=== PATIENT | male | born 1960 ===

== ENCOUNTER → 2021-02-25 | Outpatient (REF) ==
--- NOTE | 2021-03-04 16:18 | SLEEPHOME ---
DIAGNOSTIC HOME SLEEP STUDY DATE: 02/25/2021 PEFORMING FACILITY: [facility] ORDERED BY: Dennis Diehl D.O. Diagnostic home sleep testing was performed due to concern for the obstructive sleep apnea syndrome. For testing, a nocturnal T3 respiratory monitoring device was used. Continuous record was made of pulse, oxygen saturation, air flow, chest and abdominal strain, and body position. 9 hours and 59 minutes of data were reviewed. There were 7 hours and 44 minutes marked as time in bed. During the interval marked time in bed, there were 1077 respiratory events identified of 10 seconds in duration or greater for a respiratory event index 139. The events were primarily obstructive; however, 379 mixed and central apneas were appreciated. Baseline pulse rate 57. Pulse rate range 47 to 78. Baseline saturation was 92%. Saturations fell as low as 74%. Testing was performed in both the supine and non-supine positions. IMPRESSION: Abnormal home sleep testing, with repetitive respiratory events and oxygen desaturations to 74% with a respiratory event index of 139, is consistent with the obstructive sleep apnea syndrome. RECOMMENDATION: The patient should be encouraged to undergo a referral for a formal sleep evaluation. Given the frequency of central and mixed apneas, complex disease may require complex management with BiLevel pressure and a backup rate.
== END ==
LOC: M SLEEP HO 10:00
PROVIDERS: ATTEND Neuromusculoskeletal Medicine & OMM
DX: G47.33 Obstructive sleep apnea (adult) (pediatric) (principal)